=== PATIENT | female | born 1995 | race Caucasian/White ===

== ENCOUNTER 2019-12-25 20:22 | Emergency (ER) | payer OTHER, SELFPAY ==
[2019-12-25 20:30] VITALS: BP 150/78; PULSE 88; RESP 16; TEMP 36.7; O2SAT 99
--- NOTE | 2019-12-25 20:54 | ED.SKABFB ---
HPI - Skin/Abscess/Foreign Bdy General Chief complaint: Skin/Abscess/Foreign Body Stated complaint: bump under arm Source: patient Mode of arrival: ambulatory Limitations: no limitations History of Present Illness HPI narrative: Pt is a 24 yo female who presents with abscess in left axilla. she states it has been there for a few days, but is getting worse today. no fevers chills, no nausea or vomiting. pain localized to axilla. MD complaint: abscess/boil Tetanus up to date: yes Severity: moderate Quality: constant Pain Consistency: constant Relieving factors: none Exacerbating factors: none Associated symptoms: denies other symptoms Related Data Home Medications Medication Instructions Recorded Confirmed labetalol 100 mg PO BID 12/25/19 12/25/19 quetiapine 50 mg PO BID 12/25/19 12/25/19 Allergies Allergy/AdvReac Type Severity Reaction Status Date / Time No Known Allergies Allergy Unverified 07/20/18 14:28 Review of Systems Constitutional: Constitutional: Reports no additional constitutional complaints Eyes: Eyes: Reports no additional eye complaints ENT: Reports system reviewed and no additional complaints, except as documented Cardiovascular: Cardiovascular: Reports no additional cardiovascular complaints Respiratory: Respiratory: Reports no additional respiratory complaints Gastrointestinal: Gastrointestinal: Reports no additional gastrointestinal complaints Musculoskeletal: Musculoskeletal: Reports no additional musculoskeletal complaints Neurologic: Reports system reviewed and no additional complaints, except as documented Psychiatric: Psychiatric: Reports no additional psychiatric complaints Endocrine: Endocrine: Reports no additional endocrine complaints Hematologic/Lymphatic: Hematologic/Lymphatic: Reports no additional hematologic/lymphatic complaints Allergic/Immunologic: Allergic/Immunologic: Reports no additional allergic/immunologic complaints PMFSH Social History Social History Smoking status: Current every day smoker Alcohol use details: denies Other substance usage details: denies Living arrangements: with family Exam Const: General: no acute distress Nutritional Appearance: well nourished and thin Orientation/consciousness: patient oriented x3 HENMT: Head: normal to inspection Eyes: Conjunctivae: conjunctivae normal Chest: Chest palpation & inspection: normal inspection of the chest Resp: Effort & Inspection: normal respiratory effort Skin: Other: 2 abscess in left axilla, one larger and closer to arm, other more on chest wall, but this one is smaller and indurated, the larger of the 2 lesions is ready to be drained, the second lesion, is smaller and not ready yet for drainage. Neuro: General: patient oriented x3 and moves all extremities Extrem: General: normal to inspection Psych: Mental Status: mental status grossly normal Thought content: Yes Normal thought content present Course Course Emergency Course: pt states that she has been on bactrim quite a bit recently, and is worried that she may be immune to it. Vital Signs Vital signs: Vital Signs Temperature 36.7 C 12/25/19 20:30 Pulse Rate 88 12/25/19 20:30 Respiratory Rate 16 12/25/19 20:30 Blood Pressure 150/78 H 12/25/19 20:30 Pulse Oximetry 99 12/25/19 20:30 Temperature 36.7 C 12/25/19 20:30 Pulse Rate 88 12/25/19 20:30 Respiratory Rate 16 12/25/19 20:30 Blood Pressure 150/78 H 12/25/19 20:30 Pulse Oximetry 99 12/25/19 20:30 Procedures Abscess I/D left axilla: Date of Incision: 12/25/19 Time of Incision: 20:39 Side (if applicable): left Sedation/analgesia: none Local Anesthetic: lidocaine 1% Amount of anesthesia used (mL): 6 Technique: incised with #15 blade Amount of fluid expressed (mL): 10 Packing used?: plain I&D Resu
[2019-12-25 21:11] VITALS: RESP 16
== END 2019-12-25 21:10 | disposition home or self-care (01) ==
PROVIDERS: Emergency Provider Emergency Medicine; PCP Family Medicine
DX: L02.412 Cutaneous abscess of left axilla (principal); F17.200 Nicotine dependence, unspecified, uncomplicated
CPT/HCPCS: 10060; 10061; 87070; 87077; 87186; 87205; 99283

== ENCOUNTER 2020-01-13 21:18 | Emergency (ER) | payer OTHER, SELFPAY ==
[2020-01-13 21:20] VITALS: BP 125/81; PULSE 103; RESP 16; TEMP 36.3; O2SAT 100
--- NOTE | 2020-01-13 21:27 | ED_ITS ---
HPI - Overdose General Chief Complaint: Overdose Stated Complaint: ambulance Related Data Home Medications Medication Instructions Recorded Confirmed labetalol 100 mg PO BID 12/25/19 01/13/20 quetiapine 50 mg PO BID 12/25/19 01/13/20 Allergies Allergy/AdvReac Type Severity Reaction Status Date / Time No Known Allergies Allergy Unverified 07/20/18 14:28 [facility] Social History Social History Smoking status: Current every day smoker Other substance usage details: denies Course Course Emergency Course: Patient refuses exam,or any lab testing. She signed out AMA and left still fighting with boyfriend over phone. Risk of , infection, sedation explained to patient. She voiced understanding and signed out AMA> Discharge Plan Discharge Clinical Impression: Accidental fentanyl overdose Patient Disposition: Left Against Medical Advice Condition: Stable Prescriptions: No Action labetalol 100 mg tablet 100 mg PO BID RF: 0 quetiapine 50 mg tablet 50 mg PO BID RF: 0 Follow-up/Referrals: Jeffery,Juana Portillo MD [Primary Care Provider] - Time of Disposition: :29
[2020-01-13 21:39] VITALS: PULSE 108; O2SAT 97
== END 2020-01-13 21:35 | disposition left against medical advice (07) ==
PROVIDERS: Emergency Provider Family Medicine; PCP Family Medicine
DX: T40.4X1A Poisoning by other synthetic narcotics, accidental (unintentional), initial encounter (principal)
CPT/HCPCS: 93005; 99281

== ENCOUNTER 2020-12-26 10:15 | Emergency (ER) | payer OTHER, SELFPAY ==
--- NOTE | 2020-12-26 10:50 | ED.EYEPROB ---
HPI - Eye Problem General Chief complaint: Eye Problems Stated complaint: swollen rt eye Time Seen by Provider: 12/26/20 10:50 Source: patient Mode of arrival: ambulatory Limitations: no limitations History of Present Illness HPI Narrative: 25-year-old woman comes in today complaining of pain and swelling of her right lower eyelid that has been present for last 2 days and getting worse. She states that she has had some crusting on her eyelashes when she wakes. She was prescribed an antibiotic for this but was unable to afford since the provider was not covered. She has had no cough or cold symptoms, fever or vomiting. She states that the right side of her face cheeks are swollen. chief complaint: eye redness Onset (ago): day(s) (2) Onset description: gradual Duration: constant Location: right eye Eye Symptoms: redness Mechanism: none Severity: moderate If Pain, Quality: sharp and burning Associated symptoms: none Treatments Prior to Arrival: none Related Data Home Medications Medication Instructions Recorded Confirmed sulfamethoxazole-trimethoprim tablet 12/26/20 Allergies Allergy/AdvReac Type Severity Reaction Status Date / Time No Known Allergies Allergy Unverified 07/20/18 14:28 Review of Systems Constitutional: Constitutional: Denies chills and Denies fever(s) Eyes: Eyes: Denies change in vision and Denies photophobia ENT: Denies nasal congestion and Denies sore throat Cardiovascular: Cardiovascular: Denies chest pain and Denies radiating jaw, neck or arm pain Respiratory: Respiratory: Denies cough and Denies dyspnea Integumentary/Breasts: Skin/Breast: Denies pruritus, Reports erythema and Reports rash Neurologic: Denies vertigo, Denies dizziness and Denies syncope [facility] Past Medical History Medical History (Updated 12/26/20 @ 11:12 by Steve Beckford MD) Hepatitis C Social History Social History Smoking status: Current every day smoker Alcohol use details: denies Other substance usage details: denies Exam Const: General: healthy appearing and alert Orientation/consciousness: patient oriented x3 Limitations: no limitations Other: Mild acute distress. HENMT: Ears: external ears normal and TM's normal bilaterally General nose exam: Normal nares present Face and sinus: normal facial exam Mouth: Yes moist mucous membranes Throat: posterior oropharynx normal Eyes: Conjunctivae: conjunctivae normal Pupils: Equal, round and reactive pupils present EOM: EOMs intact bilaterally Other: Swelling, erythema and edema of the right lower eyelid. Is moderately tender. There is a pustule at the margin of the middle lower eyelid. No drainage is noted. Resp: Effort & Inspection: normal respiratory effort and not labored Auscultation: clear to auscultation bilaterally, no rales, no rhonchi and no wheezes Cardio: Rate: regular rate Rhythm: regular rhythm Heart sounds: no murmurs Skin: General skin exam: normal color, no jaundice and no pallor Rashes: no rashes Neuro: General: patient oriented x3, moves all extremities, no focal motor deficits and CN's II-XI intact bilaterally Speech: normal speech Gait exam (Neuro): Normal gait present Extrem: General: normal to inspection and no clubbing, cyanosis or edema Psych: Appearance: grossly normal and well kempt Mental Status: mental status grossly normal Affect: normal affect Thought content: Yes Normal thought content present Discharge Plan Discharge Clinical Impression: Hordeolum Qualifiers: Hordeolum type: externum Laterality: right Eyelid: lower Qualified Code(s): H00.012 - Hordeolum externum right lower eyelid Patient Disposition: Home, Self-Care Condition: Stable Instructions: Sabino Ruiz (ED) Additional Instructions: Do not use eye makeup until completely healed. Warm compresses 3 or 4 times daily. If your symptoms do not impro
[2020-12-26 10:52] VITALS: BP 144/108; PULSE 109; RESP 16; TEMP 36.6; O2SAT 100
[2020-12-26 11:27] VITALS: BP 140/103
== END 2020-12-26 11:28 | disposition home or self-care (01) ==
PROVIDERS: Emergency Provider Emergency Medicine
DX: H00.012 Hordeolum externum right lower eyelid (principal)
CPT/HCPCS: 99283

== ENCOUNTER 2021-04-06 06:16 | Emergency (ER) | payer OTHER, SELFPAY ==
[2021-04-06 06:20] VITALS: BP 146/100; PULSE 98; RESP 18; TEMP 36.6; O2SAT 100
--- NOTE | 2021-04-06 06:37 | ED.SKABFB ---
HPI - Skin/Abscess/Foreign Bdy General Chief complaint: Wound/Laceration Stated complaint: tip of finger swelling/throbing Source: patient and RN notes reviewed Mode of arrival: ambulatory Limitations: no limitations History of Present Illness complaint: abscess/boil Location: R hand (middle finger) Severity: moderate Quality: burning and constant Relieving factors: none Exacerbating factors: palpation Context: none Associated symptoms: denies other symptoms Treatments prior to arrival: none Related Data Allergies Allergy/AdvReac Type Severity Reaction Status Date / Time No Known Allergies Allergy Unverified 07/20/18 14:28 Review of Systems Review of Systems: All systems reviewed & are unremarkable except as noted in HPI and below PMFSH Past Medical History Medical History (Updated 04/06/21 @ 06:57 by Brandon Graham MD) Hepatitis C Social History Social History Smoking status: Current every day smoker Alcohol use details: denies Other substance usage details: denies Exam Const: General: healthy appearing, no acute distress and alert Nutritional Appearance: well nourished and thin Orientation/consciousness: patient oriented x3 Other: female nurse in room during examination. HENMT: Head: normal to inspection Ears: external ears normal Eyes: Conjunctivae: conjunctivae normal Pupils: Equal, round and reactive pupils present EOM: EOMs intact bilaterally Neck: Neck: normal visual inspection Resp: Effort & Inspection: normal respiratory effort Auscultation: clear to auscultation bilaterally Cardio: Rate: regular rate Rhythm: regular rhythm GI: GI Palp: Yes Soft to palpation and No Tenderness to palpation present (GI) Auscultation: normal bowel sounds Back/Spine/Pelvis: Cervical Spine: cervical ROM normal Thoracic/Lumbar Spine: thoraco-lumbar ROM normal Skin: General skin exam: normal color Lesions: lesion noted ( PARONYCHIA WITH Felon) right 3rd finger Neuro: General: patient oriented x3 and moves all extremities Speech: normal speech Gait exam (Neuro): Normal gait present Extrem: General: normal to inspection and no clubbing, cyanosis or edema Psych: Appearance: grossly normal and well kempt Mental Status: mental status grossly normal Affect: normal affect Attitude: cooperative Thought content: Yes Normal thought content present Course Vital Signs Vital signs: Vital Signs Temperature 36.6 C 04/06/21 06:20 Pulse Rate 98 04/06/21 06:20 Respiratory Rate 18 04/06/21 06:20 Blood Pressure 146/100 H 04/06/21 06:20 Pulse Oximetry 100 04/06/21 06:20 Temperature 36.6 C 04/06/21 06:20 Pulse Rate 98 04/06/21 06:20 Respiratory Rate 18 04/06/21 06:20 Blood Pressure 146/100 H 04/06/21 06:20 Pulse Oximetry 100 04/06/21 06:20 Procedures Abscess I/D hand: Date of Incision: 04/06/21 Side (if applicable): right Local Anesthetic: lidocaine 1% Amount of anesthesia used (mL): 4 Technique: incised with #11 blade Irrigation: No Packing used?: none I&D Results: Pus and Blood Abcess I&D Additional Comments: incised at the base of the fingernail and on the tip of the distal phalanx to open the felon Discharge Plan Discharge Clinical Impression: Felon of finger of right hand, Paronychia of finger of right hand Patient Disposition: Home, Self-Care Condition: Stable Instructions: Antibiotic Form, Paronychia (ED) Additional Instructions: use Tylenol and/or Motrin as needed for pain. Follow up with her primary care if not significantly improved the next 3-4 days Prescriptions: New clindamycin HCl 300 mg capsule 300 mg PO Q8H 10 Days Qty: 30 RF: 0 Follow-up/Referrals: UNKNOWN,DOCTOR [Primary Care Provider] - Time of Disposition: 06:58
[2021-04-06] MEDS: LIDOCAINE HCL 1% LOCAL INJ 20 ML VIAL INFILTRATE (06:54)
[2021-04-06 07:08] VITALS: BP 144/98; PULSE 89; RESP 18; O2SAT 100
== END 2021-04-06 07:09 | disposition home or self-care (01) ==
PROVIDERS: Emergency Provider Emergency Medicine
DX: L03.011 Cellulitis of right finger (principal)
CPT/HCPCS: 26010; 99283

== ENCOUNTER 2022-02-04 02:59 | Emergency (ER) | payer OTHER, SELFPAY ==
[2022-02-04 03:13] VITALS: BP 157/90; PULSE 70; RESP 16; TEMP 37; O2SAT 96
--- NOTE | 2022-02-04 03:16 | ED.HA ---
HPI - Headache General Chief Complaint: Unspecified Stated Complaint: hypertension Source: patient Mode of arrival: EMS History of Present Illness HPI Narrative: 26-year-old female with a history of hypertension was arrested by the police. She then had breathing difficulty which resolved spontaneously. she then complained that she was and had high blood pressure. Police then called the EMS who brought her to the ER. She was noted to have -- high blood pressure of 157/100. she has a history of high blood pressure and had been on labetalol which she has not taken for some time. -- complained of diffuse headache. -- Questionable seizure activity-- no seizure activity was witnessed by the police or the EMS. -- she had a positive home test MD elicited complaint: headache Pertinent past history: hypertension Onset (ago): day(s) Onset description: gradually Location: generalized Severity: mild Quality & Timing: aching Exacerbating factors: none Relieving factors: nothing Context: occurred at rest Associated symptoms: none Related Data Allergies Allergy/AdvReac Type Severity Reaction Status Date / Time No Known Allergies Allergy Unverified 07/20/18 14:28 Review of Systems Review of Systems: All systems reviewed & are unremarkable except as noted in HPI and below Constitutional: Constitutional: Reports as per HPI and Reports no additional constitutional complaints Eyes: Eyes: Reports as per HPI and Reports no additional eye complaints ENT: Reports system reviewed and no additional complaints, except as documented and Reports as per HPI Cardiovascular: Cardiovascular: Reports as per HPI and Reports no additional cardiovascular complaints Respiratory: Respiratory: Reports as per HPI and Reports no additional respiratory complaints Gastrointestinal: Gastrointestinal: Reports as per HPI and Reports no additional gastrointestinal complaints Genitourinary: Genitourinary: Reports no additional female genitourinary complaints and Reports as per HPI Musculoskeletal: Musculoskeletal: Reports no additional musculoskeletal complaints and Reports as per HPI Integumentary/Breasts: Skin/Breast: Reports system reviewed and no additional complaints, except as docu and Reports as per HPI Neurologic: Reports system reviewed and no additional complaints, except as documented and Reports headache(s) Psychiatric: Psychiatric: Reports no additional psychiatric complaints and Reports as per HPI Endocrine: Endocrine: Reports no additional endocrine complaints and Reports as per HPI Hematologic/Lymphatic: Hematologic/Lymphatic: Reports no additional hematologic/lymphatic complaints and Reports as per HPI Allergic/Immunologic: Allergic/Immunologic: Reports no additional allergic/immunologic complaints and Reports as per HPI PMFSH Past Medical History Medical History (Updated 02/04/22 @ 03:41 by Americo Byers MD) Hepatitis C Social History Social History Smoking status: Current every day smoker Alcohol use details: denies Other substance usage details: denies Exam Const: General: no acute distress Orientation/consciousness: patient oriented x3 Limitations: no limitations HENMT: Head: normal to inspection Ears: external ears normal Face/Nose/Sinus: Normal external nose present Face and sinus: normal facial exam Mouth: Yes Normal oral and palatal mucosa present Throat: posterior oropharynx normal Eyes: Conjunctivae: conjunctivae normal EOM: EOMs intact bilaterally Direct Ophthalmoscopy: no photophobia Neck: Neck: normal visual inspection, no lymphadenopathy and no meningeal signs Chest: Chest palpation & inspection: normal inspection of the chest Resp: Effort & Inspection: normal respiratory effort Auscultation: clear to auscultation bilaterally Cardio: Rate: regular rate Rhythm: regular rhythm GI: GI Palp: Yes Soft to palpation
--- NOTE | 2022-02-04 03:34 | PC.NURSE ---
refused test, screaming & cussing at staff. states we are all rude & judging her she isn't doing any test
[2022-02-04 03:48] VITALS: BP 152/88; PULSE 80; RESP 18; TEMP 37.2; O2SAT 100
== END 2022-02-04 03:49 | disposition home or self-care (01) ==
PROVIDERS: Emergency Provider Internal Medicine Critical Care Medicine
DX: I10 Essential (primary) hypertension (principal); R51.9 Headache, unspecified
CPT/HCPCS: 93005; 99283

== ENCOUNTER 2022-05-30 18:05 | Emergency (ER) | payer OTHER, SELFPAY ==
[2022-05-30 18:10] VITALS: BP 158/101; PULSE 81; RESP 16; TEMP 37; O2SAT 100
--- NOTE | 2022-05-30 18:11 | ED.ANXIETY ---
HPI - Anxiety General Chief Complaint: Anxiety Stated Complaint: Anxiety Time Seen by Provider: 05/30/22 18:07 Source: patient and RN notes reviewed Mode of arrival: ambulatory Limitations: no limitations History of Present Illness HPI narrative: patient was allegedly pulled over by the police. She had a warrant out for her arrest peer she then told the officer that she was having a panic attack and that she had been eating without using drugs specifically heroin for the last 6 hours. She denies any other symptoms. However then she did say that she might have a urinary tract infection. complaint: anxiety Onset (ago): minute(s) (15) Symptoms: other ( Anxiety after she was pulled over by the police) Place: outdoors Provoking factors: emotional stress Relieving factors: nothing Exacerbating factors: thinking about event Associated symptoms: denies other symptoms Related Data Home Medications Medication Instructions Recorded Confirmed No Home Medications 05/30/22 05/30/22 Allergies Allergy/AdvReac Type Severity Reaction Status Date / Time No Known Allergies Allergy Unverified 05/30/22 18:20 Review of Systems Review of Systems: All systems reviewed & are unremarkable except as noted in HPI and below PMFSH Past Medical History Medical History (Updated 05/30/22 @ 19:18 by Brandon Graham MD) Hepatitis C Social History Social History (Updated 05/30/22 @ 18:26 by Brandon Graham MD) Smoking packs per day: 1 Smoking cigarettes per day: 20.0 Smoking status: Current every day smoker Tobacco type: cigarettes Substance use type: heroin Other substance usage details: denies Living arrangements: with family Exam Const: General: healthy appearing, no acute distress and alert Nutritional Appearance: well nourished and thin Orientation/consciousness: patient oriented x3 Limitations: no limitations Other: Female tech in room during examination. HENMT: Head: normal to inspection Ears: external ears normal Face/Nose/Sinus: Normal external nose present Face and sinus: normal facial exam Mouth: Yes moist mucous membranes Eyes: Conjunctivae: conjunctivae normal Pupils: Equal, round and reactive pupils present EOM: EOMs intact bilaterally Neck: Neck: normal visual inspection Chest: Chest palpation & inspection: normal inspection of the chest Resp: Effort & Inspection: normal respiratory effort Auscultation: clear to auscultation bilaterally Cardio: Rate: tachycardic Rhythm: regular rhythm GI: GI Palp: Yes Soft to palpation and No Tenderness to palpation present (GI) Auscultation: normal bowel sounds Back/Spine/Pelvis: Cervical Spine: cervical ROM normal Thoracic/Lumbar Spine: thoraco-lumbar ROM normal Skin: General skin exam: normal color Rashes: no rashes Neuro: General: patient oriented x3, moves all extremities, no focal motor deficits and CN's II-XI intact bilaterally Speech: normal speech Gait exam (Neuro): Normal gait present Extrem: General: normal to inspection and no clubbing, cyanosis or edema Psych: Mental Status: mental status grossly normal Affect: Anxious affect present Attitude: cooperative Course Course Emergency Course: Patient given 25 mEq potassium chloride elix here. Vital Signs Vital signs: Vital Signs Temperature 37.0 C 05/30/22 18:10 Pulse Rate 81 05/30/22 18:10 Respiratory Rate 16 05/30/22 18:10 Blood Pressure 158/101 H 05/30/22 18:10 Pulse Oximetry 100 05/30/22 18:10 Oxygen Delivery Room Air 05/30/22 18:10 Temperature 37.0 C 05/30/22 18:15 Pulse Rate 81 05/30/22 18:15 Respiratory Rate 16 05/30/22 18:15 Blood Pressure 158/101 H 05/30/22 18:15 Pulse Oximetry 100 05/30/22 18:15 Oxygen Delivery Room Air 05/30/22 18:15 MDM - Anxiety MDM Narrative Medical decision making narrative: differential diagnosis: Anxiety, drug abuse, opiate withdrawal, electrolyte abnormality, anemia, UTI. Lab Data
[2022-05-30 18:15] VITALS: BP 158/101; PULSE 81; RESP 16; TEMP 37; O2SAT 100
--- NOTE | 2022-05-30 18:36 | PC.NURSE ---
patient gave verbal consent for RN to speak with Gus states he is her friend.
[2022-05-30 18:54] LABS: Basophils Absolute Auto 0.04 K/mm3 (0.00-0.10); Basophils Percent Auto 0.5 % (0.0-1.0); Eosinophils Absolute Auto 0.14 K/mm3 (0.02-0.50); Eosinophils Percent Auto 1.8 % (1.0-6.0); Hematocrit 45.1 % (35.0-49.0); Hemoglobin 14.1 g/dL (12.0-15.0); Immature Granulocyte Absolute 0.04 K/mm3 (0.00-0.00); Immature Granulocyte Percent A 0.5 % (0.0-0.0); Lymphocytes Absolute Auto 2.45 K/mm3 (1.10-4.50); Mean Corpuscular HGB Conc 31.3 g/dL (32.0-36.0); Mean Corpuscular Hemoglobin 27.6 pg (27.0-31.0); Mean Corpuscular Volume 88.4 fL (78.0-102.0); Mean Platelet Volume 9.1 fl (9.2-11.8); Monocytes Absolute Auto 0.53 K/mm3 (0.10-0.90); Monocytes Percent Auto 6.9 % (2.0-11.0); Neutrophils Absolute Auto 4.5 K/mm3 (1.7-7.2); Neutrophils Percent Auto 58.3 % (50.0-70.0); Platelet Count Result 307 K/mm3 (150-420); Red Cell Distribution Width 13.2 % (11.6-14.4); White Blood Count 7.7 K/mm3 (4.8-10.8)
[2022-05-30 18:59] LABS: Add Urine Microscopic? NO; Appearance Urine Clear (Clear); Bilirubin Urine Negative (Negative); Blood Urine Negative (Negative); Color Urine Light Yellow (Yellow); Glucose Urine UA Negative (Negative); Ketones Urine Negative (Negative); Leukocyte Esterase Ur Negative LEU/UL (Negative); Nitrate Urine Negative (Negative); Protein Urine Negative (Negative); Specific Grav Ur 1.025 (1.010-1.020); pH Urine 6.5 (5.0-8.0)
[2022-05-30 19:05] LABS: Amphetamine Screen Urine Positive (Negative); Barbiturate Screen Urine Negative (Negative); Benzodiazepines Screen Urine Negative (Negative); Cannabinoid Screen Urine Positive (Negative); Cocaine Screen Urine Negative (Negative); Methadone Screen Urine Negative (Negative); Opiate Screen Urine Negative (Negative); Phencyclidine Screen Urine Negative (Negative)
[2022-05-30 19:08] LABS: Alanine Aminotransferase 148 U/L (14-59); Albumin Level 3.8 g/dL (3.4-5.0); Alkaline Phosphatase 91 U/L (46-116); Anion Gap 9 mmol/L (8-16); Aspartate Amino Transferase 59 U/L (15-37); Bilirubin,Total 0.2 mg/dL (0.00-1.00); Blood Urea Nitrogen 8 mg/dL (7-18); Calcium 8.8 mg/dL (8.5-10.1); Carbon Dioxide 30 mmol/L (21-32); Chloride 102 mmol/L (98-108); Estimated CRCL calculation 72 ml/min; Estimated Glomerular Filt Rate > 60; Glucose 128 mg/dL (70-99); Osmolality Calculated 292 mOsm/kg (285-295); Potassium 3.2 mmol/L (3.5-5.1); Sodium 141 mmol/L (136-145); Total Protein 8.6 g/dL (6.4-8.2)
[2022-05-30] MEDS: POTASSIUM BICARBONATE 25 MEQ TABEF PO (19:20)
[2022-05-30 19:27] VITALS: BP 136/86; PULSE 69; RESP 20; TEMP 36.7; O2SAT 100
== END 2022-05-30 19:32 ==
PROVIDERS: Emergency Provider Emergency Medicine
DX: F41.9 Anxiety disorder, unspecified (principal); F15.10 Other stimulant abuse, uncomplicated; F17.210 Nicotine dependence, cigarettes, uncomplicated
CPT/HCPCS: 36415; 80053; 80307; 81003; 85025; 99283; A9270